=== PATIENT | male | born 1980 | race African-American/Black ===

== ENCOUNTER 2019-08-31 08:33 | Emergency (ER) | payer OTHER ==
[2019-08-31 08:40] VITALS: BP 154/97; PULSE 83; TEMP 98.1; BMI 41.9
--- NOTE | 2019-08-31 08:55 | PDOC ---
History of Present Illness - General Chief Complaint: Urinary Problem Stated Complaint: GROIN PAIN/ URINARY PROBLEMS History Source: Patient Exam Limitations: No Limitations - History of Present Illness Travel History: No Initial Comments: 08/31/19 14:03 HPI: This 39-year-old male presents to the emergency room with complaints of frequent urination as well as thirst. He denies any fever, chills, and states that this is been a symptom that is been ongoing for the last couple of weeks. He denies having any past medical history or diabetes. He denies having any family history. He states that he is not on any medication. He states also that he has some right groin pain Chief Compliant: Frequent urination Pain location: Right groin pain Duration: Modifying factors: Quality: Radiating: Severity: Time: PMH: Denies FH: Pt has not recently traveled outside the country in the last 30 days. Pt has not been in contact with people who have traveled out of the country, in contact with people who have been ill with fever, n, v, d. SH: smoking use: NONE illicit drug use: NONE alcohol use: NONE employment/educational status: [employer] sexual history: PSH: Denies Home med use noted on JAN Allergies: NKA Timing/Duration: reports: intermittent Quality: reports: moderate Abdominal Pain Onset Location: reports: RLQ Pain Radiation: reports: groin Activities at Onset: reports: no specific activity Aggravating Factors: improves with: None Alleviating Factors: improves with: None Past History - Travel Traveled outside of the country in the last 30 days: No Close contact w/someone who was outside of country & ill: No - Past Medical History Allergies/Adverse Reactions: Allergies Allergy/AdvReac Type Severity Reaction Status Date / Time No Known Allergies Allergy Verified 08/31/19 08:40 Home Medications: Ambulatory Orders NK [No Known Home Medication] 08/31/19 COPD: No - Psycho Social/Smoking Cessation Hx Smoking History: Never smoked Review of Systems - Review of Systems Able to Perform ROS?: Yes Comments:: 08/31/19 14:16 General statement: Increased thirst and urinating Hematology: neg history of bleeding/blood thinners Skin: Neg for lesions, rash, bruising. HEENT: Neg symptoms Respiratory: Neg SOB or difficulty in breathing Cardiac: Neg chest pain GI: Neg pain, n/v : Neg problems on voiding however urinating frequently without blood MS: Neg for joint pain/stiffness, no edema Neuro: Neg for LOC, weakness, Endocrine: Neg for excess thirst/hunger, cold/heat intolerance, excess sweating Allergies: Neg for allergies Is the patient limited Japanese proficient: No Constitutional: Yes: Symptoms Reported, Weakness HEENTM: No: Symptoms Reported Respiratory: No: Symptoms reported Cardiac (ROS): No: Symptoms Reported ABD/GI: Yes: Constipated (not new) : Yes: Pain, Urgency. No: Burning, Dysuria, Hematuria Musculoskeletal: No: Symptoms Reported Integumentary: No: Symptoms Reported Neurological: No: Symptoms reported *Physical Exam - Vital Signs Last Vital Signs Temp Pulse Resp BP Pulse Ox 98.1 F 83 18 154/97 97 08/31/19 08:36 08/31/19 08:36 08/31/19 08:36 08/31/19 08:36 08/31/19 08:36 - Physical Exam Comments: 08/31/19 14:16 General Appearance: This well appearing obese 39-year-old male V/S: hemodynamically stable, afebrile Skin: WNL of pt's skin color, no signs of pallor, mottling, cyanosis Head:symmetrical Eyes: EOM's intact, PERRLA Ears: denies pain Nose: patent Throat: lips, teeth, gums, tongue, buccal mucos pink and moist Lungs: Chest symmetry equal. Cap refill <3 seconds. Lung sounds clear Cardiac: PMI at R 4MCL space, pos S1 and S2, regular rate. Abdomen: Soft, round, nontender : Not observed Muscularskeletal: Gait steady, ambulated in to ER, no edema +PMS Neuro: AAOx3, cognitively intact, speech clear and appropriate. General Appearance: Yes: Other (overweight) Respiratory/Chest: positive: Lungs Clear Cardiovascular: positive: Regular Rate Gastrointestinal/Abdominal: positive: Normal Bowel Sounds, Flat, Soft Male Genitalia: positive: normal genitalia. negative: discharge, testicular tenderness, testicular mass, epididymus tender, hernia, hematuria Lymphatic: negative: Adenopathy Musculoskeletal: positive: Normal Inspection Extremity: positive: Normal Inspection Integumentary: positive: Normal Color, Dry, Warm Neurologic: positive: electrician office II-XII NML intact, Fully Oriented, Alert, Motor Strength 5/5 ED Treatment Course - LABORATORY CBC & Chemistry Diagram: 08/31/19 09:15 08/31/19 09:15 ED Progress Note - Progress Note Progress Note: 08/31/19 09:38 Pt seen for right groin pain and frequent urination. He is with clear non burning urine. He is overweight. [place] sluggish lately. -FS was 400 (never diagnosed with diabete) -labs -ua/c/s GC Discussed with pt need to follow up with MD regarding glucoseand possible new onset diabetes. 08/31/19 10:09 Labs reviewed no uti elevated glucose Medical Decision Making - Medical Decision Making 08/31/19 10:09 Lenghty discussion with elevated glucose and need to follow up with his primary care 08/31/19 14:16 Patient was found to have an elevated A1c as well as increased glucoses. He denies ever having been on any diabetic medications. Denies any family history of diabetes. He is obese. At this time I explained that he will need to lower his carbs and sugars. I encouraged him to go the grocery store to buy fruits and vegetables. He needs to follow-up with his doctor and I given him a copy of his labs to present to his physician. His UA is negative with the exception of having positive ketones and glucose in his urine. I encouraged him to continue to drink plenty of fluids. At this time is being discharged and to have follow-up with his primary. Discharge - Discharge Information Problems reviewed: Yes Clinical Impression/Diagnosis: Diabetes Condition: Good Disposition: HOME - Admission No - Additional Discharge Information Health Concerns: new onset diabetes Hypertension Goals: follow up with MD Plan of Treatment: Increase fluids Decrease sugars and carbs Follow up with your doctor - Follow up/Referral Referrals: Emma Muñoz MD [Primary Care Provider] - - Patient Discharge Instructions Patient Printed Discharge Instructions: Type 2 Diabetes, Sugar-Sweetened Fruit Drinks Linked to Increased Chance of Type 2 Diabetes Additional Instructions: Discharge to follow up with your doctor on Sunday morning - Post Discharge Activity Work/Back to School Note: Back to Work
[2019-08-31 09:32] LABS: BASO % 1.4 % (0-2.0); EOS % 1.3 % (0-4.5); HEMOGLOBIN 17.2 GM/dL (11.7-16.9); LYMPH % 38.8 % (8-40); MCH 27.7 pg (25.7-33.7); MCHC 33.2 g/dl (32.0-35.9); MEAN CELL VOLUME 83.5 fl (80-96); MEAN PLT VOLUME 10.2 fl (7.5-11.1); MONO % 9.7 % (3.8-10.2); NEUT % 48.8 % (42.8-82.8); PLATELET COUNT 232 K/MM3 (134-434); RBC 6.22 M/mm3 (4.00-5.60); RDW 13.5 % (11.9-15.9); WHITE BLOOD COUNT 6.6 K/mm3 (4.0-10.0)
[2019-08-31 09:38] LABS: PH,URINE 5.5 (5.0-8.0); URINE APPEARANCE Clear; URINE BILIRUBIN Negative (NEGATIVE); URINE COLOR Yellow; URINE GLUCOSE (UA) 2+ (NEGATIVE); URINE KETONE 2+ (NEGATIVE); URINE LEUK ESTERASE Negative (NEGATIVE); URINE NITRITE Negative (NEGATIVE); URINE PROTEIN Negative (NEGATIVE); URINE UROBILINOGEN 0.2 mg/dL (0.2-1.0)
[2019-08-31 09:53] LABS: ALBUMIN 4.3 g/dl (3.4-5.0); ALK PHOS 307 U/L (45-117); ANION GAP 8 MMOL/L (8-16); BILIRUBIN,TOTAL 0.5 mg/dL (0.2-1); BLOOD UREA NITROGEN 16.8 mg/dL (7-18); CALCIUM 9.1 mg/dL (8.5-10.1); CHLORIDE 99 mmol/L (98-107); CO2 28 mmol/L (21-32); CREATININE 1.2 mg/dL (0.55-1.3); GLUCOSE,RANDOM 392 mg/dL (74-106); POTASSIUM 4.3 mmol/L (3.5-5.1); SGOT/AST 43 U/L (15-37); SGPT/ALT 90 U/L (13-61); SODIUM 135 mmol/L (136-145); TOT PROT 8.1 g/dl (6.4-8.2)
[2019-08-31 10:41] LABS: ACETONE SERUM TRACE (NEGATIVE)
== END 2019-08-31 10:50 | disposition home or self-care (01) ==
LOC: JERFT 08:33
DX: E11.9 Type 2 diabetes mellitus without complications (principal)
CPT/HCPCS: 36415; 80053; 81003; 82009; 82962; 83036; 85025; 87086; 87491; 87591; 99282-25